=== PATIENT | male | born 1975 | race Caucasian/White ===

== ENCOUNTER 2023-01-23 15:31 | Emergency (ER) | payer OTHER, BC ==
[~2023-01-23] VITALS: Ht 182.9 cm; Wt 139.3 kg
[2023-01-23] MEDS ORDERED: TETANUS/DIPHTHERIA TOX ADULT 0.5 ML SYR IM ONE (16:00)
[2023-01-23 17:57] VITALS: BP 139/87
== END 2023-01-23 18:03 | disposition home or self-care (01) ==
LOC: ER 15:50
DX: S80.812A Abrasion, left lower leg, initial encounter (principal); S80.212A Abrasion, left knee, initial encounter; R51.9 Headache, unspecified; M25.512 Pain in left shoulder; M25.511 Pain in right shoulder; I10 Essential (primary) hypertension; V23.49XA Other motorcycle driver injured in collision with car, pick-up truck or van in traffic accident, initial encounter; Y92.410 Unspecified street and highway as the place of occurrence of the external cause
CPT/HCPCS: 70450; 72125; 90714; 99284